=== PATIENT | male | born 1945 | race Caucasian/White ===

== ENCOUNTER 2017-05-31 08:00 | Outpatient (CLI) | payer MEDICARE ==
[2017-05-31 12:23] LABS: ALBUMIN/GLOBULIN RATIO 1.4 (1.0-2.2); ALKALINE PHOSPHATASE 56 IU/L (42-121); ALT ALANINE AMINOTRANSFERASE 22 IU/L (10-60); AST ASPARTATE AMINOTRANSFERASE 19 IU/L (10-42); BILIRUBIN,TOTAL 0.9 mg/dL (0.2-1.0); BUN - BLOOD UREA NITROGEN 30 mg/dL (6-20); CALCIUM 8.8 mg/dL (8.5-10.3); CARBON DIOXIDE - CO2 30 mmol/L (21-32); CHLORIDE 104 mmol/L (101-111); CHOL/HDL RATIO 4.2 (<5.0); CHOLESTEROL 211 mg/dL; CREATININE 1.1 mg/dL (0.6-1.2); GFR - MDRD 66 (>89); GLUCOSE 85 mg/dL (70-100); HDL CHOLESTEROL 50 mg/dL; LDL CHOLESTEROL,CALCULATED 141 mg/dL; LDL/HDL RATIO 2.8 (<3.6); SODIUM 139 mmol/L (135-145); TOTAL PROTEIN 6.8 g/dL (6.7-8.2); VLDL CHOLESTEROL 20 mg/dL
[2017-05-31 12:33] LABS: HB2 TOTAL 17.9 g/dL; HEMOGLOBIN A1C 0.71 g/dL; HEMOGLOBIN A1C % 5.8 % (4.6-6.2)
[2017-05-31 12:45] LABS: BILIRUBIN,URINE NEGATIVE (NEGATIVE); GLUCOSE, URINE (UA) NEGATIVE (NEGATIVE); KETONES,URINE (UA) NEGATIVE (NEGATIVE); LEUKOCYTE ESTERASE, URINE NEGATIVE (NEGATIVE); NITRITE,URINE NEGATIVE (NEGATIVE); OCCULT BLOOD,URINE NEGATIVE (NEGATIVE); PH,URINE 5.5 PH (5.0-7.5); PROTEIN,URINE NEGATIVE (NEGATIVE); UROBILINOGEN,URINE 0.2 (NORMAL) E.U./dL (NORMAL)
[2017-05-31 13:03] LABS: CLARITY,URINE CLOUDY (CLEAR); RBC,URINE 0-5 /HPF (0-5)
[2017-05-31 13:04] LABS: AMORPHOUS SEDIMENT,UR Marked /LPF; BACTERIA,URINE Few /HPF (None Seen); SQUAMOUS EPITHELIAL CELL,UR RARE Squamous (<= Few)
== END 2017-05-31 08:01 ==
LOC: LAB.WCP 08:00
PROVIDERS: ATTEND Family Medicine
DX: Z00.00 Encounter for general adult medical examination without abnormal findings (principal)
CPT/HCPCS: 36415; 80053; 80061; 81001; 83036; 83721

== ENCOUNTER 2017-08-15 11:57 | Day surgery (SDC) | payer MEDICARE ==
[~2017-08-15 11:57] MED LIST: LACTATED RINGERS 1,000 ML IV ONE
[2017-08-15] MEDS ORDERED: fentaNYL 250 MCG/5 ML VIAL IVP ONE (14:11)
[2017-08-15] MEDS ORDERED: MIDAZOLAM 2 MG/2 ML VIAL IVP ONE (14:11)
[2017-08-15 15:10] VITALS: BP 106/67
== END 2017-08-15 11:58 | disposition home or self-care (01) ==
LOC: SDS 11:57
PROVIDERS: ATTEND Surgery
PROC: 0DBP8ZZ Excision of Rectum, Via Natural or Artificial Opening Endoscopic (ICD-10-PCS; principal; 2017-08-15 13:00)
DX: Z12.11 Encounter for screening for malignant neoplasm of colon (principal); K62.1 Rectal polyp; K57.30 Diverticulosis of large intestine without perforation or abscess without bleeding; K64.8 Other hemorrhoids; E78.5 Hyperlipidemia, unspecified; F32.9 Major depressive disorder, single episode, unspecified
CPT/HCPCS: 45380; J7120; 88305

== ENCOUNTER 2019-10-04 12:34 | Outpatient (CLI) | payer MEDICARE | END 2019-10-04 12:35 | disposition home or self-care (01) | LOC: COV 12:34 | PROVIDERS: ATTEND Ophthalmology | DX: Z01.812 Encounter for preprocedural laboratory examination (principal); H25.811 Combined forms of age-related cataract, right eye; Z11.59 Encounter for screening for other viral diseases ==

== ENCOUNTER 2019-10-10 06:52 | Day surgery (SDC) | payer MEDICARE ==
[~2019-10-10 06:52] MED LIST changes: +CYCLOPENTOLATE 1% OPHTH DROPS 2 ML ONE; +KETOROLAC 0.45% OPHTH DROPS ONE; -LACTATED RINGERS 1,000 ML IV ONE; +PHENYLEPHRINE 2.5% OPHTH 2 ML DROPS ONE; +PROPARACAINE 0.5% OPHTH DROPS 15 ML ONE
[2019-10-10] MEDS ORDERED: MIDAZOLAM 2 MG/2 ML VIAL IVP ONE (06:53)
[2019-10-10] MEDS ORDERED: LACTATED RINGERS 1,000 ML IV ONE ×2 (06:54→09:13)
--- NOTE | 2019-10-10 08:18 | ANESTHESIA ---
Pre-Anesthesia VS, & Labs - Diagnosis right eye senile combined cataract - Procedure right eye cataract extraction with IOL Vital Signs: Temp Pulse Resp BP Pulse Ox 36.7 C 60 12 151/98 H 97 10/10/19 06:58 10/10/19 06:58 10/10/19 06:58 10/10/19 06:58 10/10/19 06:58 Height 5 ft 6 in Weight (kg) 63.5 kg - NPO >8 hours Home Medications and Allergies Home Medications: Ambulatory Orders Red Yeast Rice 2 tab PO DAILY 10/10/19 Saw [place] Fruit [Saw [place]] 2 tab PO DAILY 10/10/19 Anastrozole [Arimidex] 0.5 tab PO ONCE 08/14/17 Cholecalciferol (Vitamin D3) [Vitamin D] 2,000 unit PO DAILY 08/14/17 Glucosamine/Chondr Lemus A Sod [Glucosamine-Chondroitin Tablet] 2 each PO DAILY 08/14/17 Mecobalamin [B-12] 5,000 mcg PO DAILY 08/14/17 Testosterone 2.5 gm TD DAILY 08/14/17 Turmeric/Turmeric Root Extract [Turmeric] 1,500 mg PO DAILY 08/14/17 Red Yeast Rice 2 tab PO DAILY 10/10/19 Saw [place] Fruit [Saw [place]] 2 tab PO DAILY 10/10/19 Allergies/Adverse Reactions: Allergies Allergy/AdvReac Type Severity Reaction Status Date / Time shrimp Allergy Hives Verified 08/14/17 14:22 Sulfa (Sulfonamide Allergy Respiratory Verified 08/14/17 14:22 Antibiotics) Anes History & Medical History - Anesthetic History Anesthesia Complications: reports: No previous complications - Medical History Cardiovascular: reports: Hypertension, High cholesterol Pulmonary: reports: None Gastrointestinal: reports: None Urinary: reports: Benign prostate hypertrophy Neuro: reports: None Musculoskeletal: reports: Osteoarthritis Endocrine/Autoimmune: reports: None Blood Disorders: reports: None Skin: reports: Other (melenoma removal) Smoking Status: Never smoker Psychosocial: reports: No issues indicated - Surgical History General: Colonoscopy Exam General: Alert, Oriented x3, Cooperative, No acute distress Dental: WNL Mouth Openin Fingerbreadth Neck Mobility: Normal Mallampati classification: II Mental/Cognitive Status: Alert/Oriented X3, Normal for patient Plan Anesthesia Type: MAC Consent for Procedure(s) Verified and Reviewed: Yes Code Status: Attempt Resuscitation ASA classification: 2-Mild systemic disease Is this case an emergency?: No
[2019-10-10] MEDS ORDERED: TRIAMCIN/MOXIFLOX OPHTHALMIC 0.6 ML VIAL IO ONE ×2 (08:36→09:10)
[2019-10-10] MEDS ORDERED: EPINEPHrine 1 MG/ML AMP ONE (08:36)
[2019-10-10] MEDS ORDERED: BRIMONIDINE 0.2% OPHTH DROPS 5 ML ONE (08:36)
[2019-10-10] MEDS ORDERED: TIMOLOL 0.5% OPHTH DROPS ONE (08:36)
[2019-10-10] MEDS ORDERED: BSS/LIDOCAINE/EPINEPHRINE 1 ML SYRINGE ONE (08:37)
[2019-10-10] MEDS ORDERED: VANCOMYCIN OPHTHALMI 8MG/0.8ML 8 MG/0.8 ML SYRINGE IO ONE ×2 (08:37→09:10)
[2019-10-10] MEDS ORDERED: CHONDR SULF/HYALURONATE SYRINGE IO ONE (09:10)
[2019-10-10] MEDS ORDERED: BRIMONIDINE 0.2% OPHTH DROPS 5 ML OPTH ONE (09:10)
[2019-10-10] MEDS ORDERED: TIMOLOL 0.5% OPHTH DROPS OPTH ONE (09:10)
[2019-10-10] MEDS ORDERED: EPINEPHrine 1 MG/ML AMP IR ONE (09:10)
[2019-10-10] MEDS ORDERED: BSS/LIDOCAINE/EPINEPHRINE 1 ML SYRINGE IO ONE (09:10)
[2019-10-10] MEDS ORDERED: PROPARACAINE 0.5% OPHTH DROPS 15 ML EACHEYE ONE (09:10)
[2019-10-10 09:21] VITALS: BP 123/72
--- NOTE | 2019-10-10 10:03 | OPERATIVE REPORT ---
DATE OF SERVICE: 10/10/2019 Physician: Jase Nichols MD PREOPERATIVE DIAGNOSIS: Visually significant cataract, right eye. This was his first cataract surge ry. POSTOPERATIVE DIAGNOSIS: Visually significant cataract, right eye. This was his first cataract surg marc. PROCEDURE: Phacoemulsification with posterior chamber intraocular lens implant, right eye. SURGEON: Jase Nichols MD ANESTHESIA: Monitored anesthesia care. COMPLICATIONS: None. OPERATIVE INDICATIONS: This is a 73-year-old man with progressive vision loss in the right eye due t o 2+ nuclear sclerotic and 3-4+ cortical cataract. Best corrected visual acuity was 20/25, with glar e to hand motion vision in the right eye. Indications for surgery are overall decrease in vision, di fficulty seeing words on a computer screen, difficulty reading, difficulty seeing words, closed capti on or game scores on TV, difficulty seeing street signs, difficulty driving in low light or at night, difficulty driving at night because of headlights from other vehicles, difficulty with glare or brig ht lights in any situation, and difficulty tracking a golf ball. He was consented at length concerni ng risks and benefits of cataract surgery, after which he expressed a desire to proceed with surgery. DESCRIPTION OF PROCEDURE: The patient was taken to OR #3 and placed under monitored anesthesia care. Surgical timeout was conducted confirming correct patient, correct procedure, and correct surgical site. He was given topical anesthesia, and prepped and draped in the usual sterile fashion. The eye was entered at the 12, and 9 o'clock positions. Intracameral Shugarcaine was injected into the ante rior chamber, followed by Viscoat. A continuous-tear curvilinear capsulorrhexis was performed. Nucl eus was hydrodissected and phacoemulsified. The cortex was evacuated using automated infusion and as piration. Provisc was injected in the capsular bag, and a 17.0 diopter intraocular lens was inserted into the bag. Infusion and aspiration was used to evacuate the viscoelastic materials. The eye was inflated to physiologic pressure using balanced salt solution and found to be watertight. Approxima tely 0.25 mL of a mixture of triamcinolone and moxifloxacin was injected trans sclerally into the vit reous in inferotemporal quadrant. An additional 0.55 mL of a mixture of triamcinolone, moxifloxacin and vancomycin was injected subconjunctivally in the superior quadrant for infection and inflammation prophylaxis. Wound integrity was checked with Weck-Mahdavi sponges. The patient was taken from the Ope rating Room in good condition and given postoperative instructions. TD: 10/10/2019 09:35
--- NOTE | 2019-10-10 10:20 | ANESTHESIA POST OP EVALUATION ---
Anesthesia Post Eval - Post Anesthesia Eval Vitals: Last Vital Signs Temp 36.2 C L 10/10/19 09:20 Pulse 62 10/10/19 09:20 Resp 16 10/10/19 09:20 BP 123/72 10/10/19 09:20 Pulse Ox 96 10/10/19 09:20 CV Function Including HR & BP: positive: Stable Pain Control: positive: Satisfactory Nausea & Vomiting: positive: Negative Mental Status: positive: Baseline Respiratory Status: Airway Patent Hydration Status: Satisfactory Anesthesia Complications: positive: None
== END 2019-10-10 06:53 | disposition home or self-care (01) ==
LOC: SDS 06:52
PROVIDERS: ATTEND Ophthalmology
DX: H25.811 Combined forms of age-related cataract, right eye (principal); N40.0 Benign prostatic hyperplasia without lower urinary tract symptoms; I10 Essential (primary) hypertension
CPT/HCPCS: 66984; A9270; J3490; J7120; V2632

== ENCOUNTER 2019-11-21 09:45 | Outpatient (CLI) | payer MEDICARE ==
--- NOTE | 2019-11-21 09:48 | XRAY Report ---
PROCEDURE: Foot 3 View LT INDICATIONS: LEFT FOOT PAIN TECHNIQUE: 3 views of the foot were acquired. COMPARISON: None FINDINGS: Bones: No fractures or dislocations. No suspicious bony lesions. Soft tissues: No tibiotalar joint effusion. Achilles tendon appears normal. IMPRESSION: No trauma found, source of left foot pain is not identified. Reviewed by: Jermain Johnson MD on 11/21/2019 9:46 AM PDT Approved by: Jermain Johnson MD on 11/21/2019 9:46 AM PDT Station ID: [id number]
== END 2019-11-21 23:59 | disposition home or self-care (01) ==
LOC: DI.WCP 09:45
PROVIDERS: ATTEND Family Medicine
DX: M79.672 Pain in left foot (principal)

== ENCOUNTER 2020-01-23 10:00 | Outpatient (CLI) | payer MEDICARE ==
--- NOTE | 2020-01-23 15:45 | MRI Report ---
PROCEDURE: Ankle LT W/O INDICATIONS: DIFFICULTY WALKING, CHRONIC LT FOOT PAIN TECHNIQUE: Noncontrast sagittal T1 spin echo and T2 fast spin echo with fat saturation, axial proton density fas t spin echo and T2 fast spin echo with fat saturation, coronal T1 spin echo and T2 fast spin echo wit h fat saturation through the ankle/hindfoot. COMPARISON: None. FINDINGS: Image quality: There is mild motion artifact. Bones and joints: No bone marrow contusions or fractures. No hindfoot coalitions. No osteochondral injuries of the talar dome. No pathologic joint effusions. There is a small lobulated cyst posterio r to the tibiotalar joint compatible with a loculated joint recess or ganglion cyst. Medial structures: The posterior tibialis, flexor digitorum longus, and flexor hallucis longus tendo ns are intact with associated minimal tenosynovial fluid. The posterior tibial neurovascular bundle a ppears normal within the tarsal tunnel, without extrinsic mass effect. The deltoid and spring ligame nt components appear intact. Lateral structures: The anterior talofibular ligament is attenuated in appearance consistent with se quelae of a prior moderate sprain. The calcaneofibular ligament is also mildly attenuated system with a prior mild to moderate sprain. The posterior talofibular ligament appears intact. More superiorly, the anterior and posterior tibiofibular ligaments also appear intact, as is the intermalleolar ligam ent. The tibiofibular syndesmosis is normal in width at 2 mm or less. The peroneus longus and brevi s tendons demonstrate normal location and morphology with a small amount of tenosynovial fluid. Arabella cent bony peroneal tubercle and retrotrochlear prominence are normal in size. The sinus tarsi demons trates preserved fatty signal with minimal edema. Anterior structures: The tibialis anterior, extensor hallucis longus, and extensor digitorum longus tendons appear intact. Posterior and plantar structures: Achilles tendon is intact. Medial and lateral bands of the planta r fascia are of normal thickness. No abductor digiti quinti muscle atrophy to suggest Leiva neuropa thy. There is mild periarticular edema along the plantar aspect of the midfoot joints. IMPRESSION: 1. Mild periarticular edema along the plantar aspect of the midfoot. Findings are nonspecific and may reflect sequelae of a midfoot sprain or chronic reactive changes. 2. Sequelae of prior sprains of the anterior talofibular anchor can fibular ligaments. 3. Mild tenosynovitis along the peroneal tendons which appear intact. Reviewed by: Jd Mendez MD on 01/23/2020 3:44 PM PST Approved by: Jd Mendez MD on 01/23/2020 3:44 PM PST Station ID: [id number]
== END 2020-01-23 10:01 | disposition home or self-care (01) ==
LOC: DI 10:00
PROVIDERS: ATTEND Podiatrist
DX: M65.872 Other synovitis and tenosynovitis, left ankle and foot (principal); M79.672 Pain in left foot; R26.2 Difficulty in walking, not elsewhere classified; M21.072 Valgus deformity, not elsewhere classified, left ankle

== ENCOUNTER 2020-10-14 08:00 | Outpatient (CLI) | payer MEDICARE ==
[2020-10-14 17:54] LABS: BASOPHILS % (AUTO) 0.3 %; EOSINOPHILS # (AUTO) 0.1 10^3/uL (0.0-0.7); EOSINOPHILS % (AUTO) 1.6 %; HCT - HEMATOCRIT 53.2 % (42.0-52.0); HGB - HEMOGLOBIN 17.3 g/dL (14.0-18.0); LYMPHOCYTES # (AUTO) 0.6 10^3/uL (1.5-3.5); LYMPHOCYTES % (AUTO) 9.9 %; MEAN CORPUSCULAR HGB CONC 32.5 g/dL (32.0-36.0); MEAN CORPUSCULAR VOLUME 104.5 fL (80.0-94.0); MEAN PLATELET VOLUME 9.7 fL (7.4-11.4); MONOCYTES # (AUTO) 0.4 10^3/uL (0.0-1.0); NEUTROPHILS # (AUTO) 4.6 10^3/uL (1.5-6.6); PLT - PLATELET COUNT 216 10^3/uL (130-450); RED BLOOD COUNT 5.09 10^6/uL (4.70-6.10); RED CELL DISTRIBUTION WIDTH 12.1 % (12.0-15.0); WHITE BLOOD COUNT 5.7 x10^3/uL (4.8-10.8)
[2020-10-14 18:24] LABS: ALBUMIN/GLOBULIN RATIO 1.4 (1.0-2.2); ALKALINE PHOSPHATASE 65 IU/L (42-121); ALT ALANINE AMINOTRANSFERASE 18 IU/L (10-60); AST ASPARTATE AMINOTRANSFERASE 18 IU/L (10-42); BILIRUBIN,TOTAL 0.8 mg/dL (0.2-1.0); BUN - BLOOD UREA NITROGEN 26 mg/dL (6-20); CALCIUM 8.7 mg/dL (8.5-10.3); CARBON DIOXIDE - CO2 28 mmol/L (21-32); CHLORIDE 100 mmol/L (101-111); CHOL/HDL RATIO 3.6 (<5.0); CHOLESTEROL 178 mg/dL; CREATININE 1.2 mg/dL (0.6-1.2); GFR - MDRD 59 (>89); GLUCOSE 97 mg/dL (70-100); HDL CHOLESTEROL 50 mg/dL; LDL CHOLESTEROL,CALCULATED 114 mg/dL; LDL/HDL RATIO 2.3 (<3.6); MAGNESIUM 2.3 mg/dL (1.7-2.8); POTASSIUM 4.5 mmol/L (3.5-5.0); SODIUM 137 mmol/L (135-145); TOTAL PROTEIN 6.8 g/dL (6.7-8.2); TRIGLYCERIDES 71 mg/dL; VLDL CHOLESTEROL 14 mg/dL
[2020-10-14 18:32] LABS: THYROID STIMULATING HORMONE 2.3 uIU/mL (0.34-5.60)
[2020-10-14 20:53] LABS: ESTIMATED AVERAGE GLUCOSE 108 mg/dL (70-100); HEMOGLOBIN A1c% 5.4 % (4.27-6.07)
== END 2020-10-14 23:59 | disposition home or self-care (01) ==
LOC: LAB.WCP 08:00
PROVIDERS: ATTEND Family Medicine
DX: E78.5 Hyperlipidemia, unspecified (principal); E74.39 Other disorders of intestinal carbohydrate absorption; I49.9 Cardiac arrhythmia, unspecified
CPT/HCPCS: 36415; 80053; 80061; 83036; 83721; 83735; 84443; 85025

== ENCOUNTER 2021-02-18 09:17 | Outpatient (CLI) | payer MEDICARE ==
--- NOTE | 2021-02-18 09:34 | CARDIAC PROCEDURE NOTE ---
Stress Test Report Service Date: 02/18/21 Service Time: 09:30 Ordering Provider: Treasure Phelps DO Indication for Test: Assess for cardiac ischemia as a contributor to episodic irregular heart beat and variable blood pressures. Significant Medical History: Maikel is referred for a treadmill stress echocardiogram as part of evaluation for recent episodes of (per his report) atrial tachycardia by rhythm monitoring, with variable blood pressures. With home monitoring at rest he typically sees values in the range of 130/70's, though it can be elevated occasionally at clinic or pharmacy checks. 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 He denies any experience of chest pain, pressure or heaviness, as well as lightheadedness/dizziness. Cardiac Risk Factors: Positive for family history of CAD in his mother (at age ~70) and sister (early 60's) and possible hypertension (as above). Negative for diabetes and significant tobacco use; cholesterol status is unknown. Type of Stress Test: ETT with Echocardiography Procedure: -Exercise Treadmill Test- After signing informed consent, the patient underwent resting echo imaging and then performed treadmill exercise using a Jon protocol. The patient exercised for 8 minutes 34 seconds and achieved a peak heart rate of 164 (112 percent predicted maximum heart rate for age), and an estimated workload of 10.2 METS. The test was terminated due to fatigue/shortness of breath after achieving target heart rate. Resting heart rate: 85 Peak heart rate: 164 Normal response to exercise. Resting BP: 183/78 Peak BP: 205/70 Hypertensive at rest with physiologic BP response to exercise. Rhythm during exercise: Sinus rhythm with occasional isolated premature atrial complexes, rare isolated premature ventricular complexes and a single ventricular couplet. Symptoms: Patient denied any specific cardiovascular symptoms, such as chest discomfort, palpitations or lightheadedness. He expressed significant anxiety prior to, and even after, completing the protocol. EKG at rest showed normal sinus rhythm, normal in all aspects. EKG at peak stress showed J-point depression with upsloping ST segments, NOT meeting diagnostic criteria for ischemia. In Recovery patient's heart rate and blood pressure came down towards baseline levels, though both were still abnormally elevated (HR 103, BP 169/74) at 9 minutes of recovery. Echo imaging was performed at rest and with stress and will be reported separately. ILux MD, was present throughout this treadmill stress study and supervised it in its entirety. Summary: 1) Exercise tolerance well above average for age, as evidenced by GHASSAN of -37%. 2) Normal resting EKG. 3) Adequate level of exercise was achieved on this treadmill stress test. 4) Hypertensive at rest with physiologic BP response to exercise. 5) No ischemic changes by EKG criteria were seen at peak stress. 6) Echo image interpretation reveals normal left ventricular size and systolic function, with appropriate hyperdynamic augmentation of all segments with exercise, indicating no evidence of prior infarct or inducible ischemia. See separate report for more details. CONCLUSIONS: 1) No evidence of inducible ischemia by symptoms, EKG or echo at high workload attained, that was well above average for age and sex. 2) Baseline echo assessment was notable for mild to moderate mitral regurgitation and elevated estimated right ventricular/pulmonary artery systolic pressure of (40 + CVP of 3)=43 mmHg. Dedicated exam to fully assess mitral valve and est PASP may be informative. He mentions plan for further evaluation by [facility], to whom we will send today's report. 3) Patient reported chronic experience of "white coat hypertension" with lower values upon home monitoring. He is advised to collect additional BP data at various times of the day, and to bring his log and home BP device with him to follow up visit with Dr Phelps and/or his new cardiology provider in March.
== END 2021-02-18 09:18 | disposition home or self-care (01) ==
LOC: DI 09:17
PROVIDERS: ATTEND Family Medicine
DX: R07.89 Other chest pain (principal); I49.9 Cardiac arrhythmia, unspecified; I34.0 Nonrheumatic mitral (valve) insufficiency; Z82.49 Family history of ischemic heart disease and other diseases of the circulatory system
CPT/HCPCS: 93016; 93018; 93350

== ENCOUNTER 2021-03-09 08:00 | Outpatient (CLI) | payer MEDICARE ==
[2021-03-09 11:36] LABS: BASOPHILS % (AUTO) 0.5 %; EOSINOPHILS # (AUTO) 0.1 10^3/uL (0.0-0.7); EOSINOPHILS % (AUTO) 1.1 %; HGB - HEMOGLOBIN 14.4 g/dL (14.0-18.0); LYMPHOCYTES # (AUTO) 1.6 10^3/uL (1.5-3.5); LYMPHOCYTES % (AUTO) 36.8 %; MEAN CORPUSCULAR HEMOGLOBIN 33.9 pg (27.0-31.0); MEAN CORPUSCULAR HGB CONC 33.5 g/dL (32.0-36.0); MEAN CORPUSCULAR VOLUME 101.2 fL (80.0-94.0); MEAN PLATELET VOLUME 9.6 fL (7.4-11.4); MONOCYTES # (AUTO) 0.5 10^3/uL (0.0-1.0); MONOCYTES % (AUTO) 11.3 %; NEUTROPHILS # (AUTO) 2.2 10^3/uL (1.5-6.6); NEUTROPHILS % (AUTO) 50.1 %; PLT - PLATELET COUNT 189 10^3/uL (130-450); RED BLOOD COUNT 4.25 10^6/uL (4.70-6.10); RED CELL DISTRIBUTION WIDTH 12.4 % (12.0-15.0); WHITE BLOOD COUNT 4.4 x10^3/uL (4.8-10.8)
[2021-03-09 12:24] LABS: ALBUMIN/GLOBULIN RATIO 1.5 (1.0-2.2); BILIRUBIN,TOTAL 1.2 mg/dL (0.2-1.0); CALCIUM 9.1 mg/dL (8.5-10.3); CREATININE 1.1 mg/dL (0.6-1.2); POTASSIUM 4.4 mmol/L (3.5-5.0); TOTAL PROTEIN 6.7 g/dL (6.7-8.2)
== END 2021-03-09 23:59 | disposition home or self-care (01) ==
LOC: LAB.WCP 08:00
PROVIDERS: ATTEND Family Medicine
DX: D75.1 Secondary polycythemia (principal); R59.1 Generalized enlarged lymph nodes; E29.1 Testicular hypofunction
CPT/HCPCS: 36415; 80053; 81599; 82668; 83615; 84402; 84403; 85025

== ENCOUNTER 2021-05-11 09:02 | Outpatient (CLI) | payer MEDICARE ==
[2021-05-11 12:38] LABS: BASOPHILS % (AUTO) 0.6 %; EOSINOPHILS # (AUTO) 0.1 10^3/uL (0.0-0.7); HCT - HEMATOCRIT 41.7 % (42.0-52.0); LYMPHOCYTES # (AUTO) 1.5 10^3/uL (1.5-3.5); LYMPHOCYTES % (AUTO) 31.6 %; MEAN CORPUSCULAR HEMOGLOBIN 34.6 pg (27.0-31.0); MEAN CORPUSCULAR HGB CONC 33.6 g/dL (32.0-36.0); MEAN PLATELET VOLUME 9.8 fL (7.4-11.4); MONOCYTES # (AUTO) 0.6 10^3/uL (0.0-1.0); MONOCYTES % (AUTO) 11.7 %; NEUTROPHILS # (AUTO) 2.5 10^3/uL (1.5-6.6); NEUTROPHILS % (AUTO) 53.1 %; PLT - PLATELET COUNT 205 10^3/uL (130-450); RED BLOOD COUNT 4.05 10^6/uL (4.70-6.10); WHITE BLOOD COUNT 4.7 x10^3/uL (4.8-10.8)
[2021-05-11 12:54] LABS: ALBUMIN/GLOBULIN RATIO 1.5 (1.0-2.2); BILIRUBIN,TOTAL 0.8 mg/dL (0.2-1.0); CALCIUM 8.8 mg/dL (8.5-10.3); CREATININE 1.1 mg/dL (0.6-1.2); POTASSIUM 4.4 mmol/L (3.5-5.0); TOTAL PROTEIN 6.7 g/dL (6.7-8.2)
== END 2021-05-11 09:03 | disposition home or self-care (01) ==
LOC: LAB.N 09:02
PROVIDERS: ATTEND Family Medicine
DX: D75.1 Secondary polycythemia (principal)
CPT/HCPCS: 36415; 80053; 82668; 85025

== ENCOUNTER 2022-06-02 08:00 | Outpatient (CLI) | payer MEDICARE ==
[2022-06-02 18:07] LABS: BILIRUBIN,URINE NEGATIVE (NEGATIVE); GLUCOSE, URINE (UA) NEGATIVE (NEGATIVE); KETONES,URINE (UA) TRACE mg/dL (NEGATIVE); LEUKOCYTE ESTERASE, URINE NEGATIVE (NEGATIVE); NITRITE,URINE NEGATIVE (NEGATIVE); OCCULT BLOOD,URINE NEGATIVE (NEGATIVE); PROTEIN,URINE NEGATIVE (NEGATIVE); UROBILINOGEN,URINE 0.2 (NORMAL) E.U./dL (NORMAL)
[2022-06-02 18:08] LABS: CLARITY,URINE CLOUDY (CLEAR)
[2022-06-02 18:26] LABS: AMORPHOUS SEDIMENT,UR Marked /LPF; BACTERIA,URINE None Seen /HPF (None Seen); RBC,URINE None Seen /HPF (0-5); SQUAMOUS EPITHELIAL CELL,UR NONE SEEN (<= Few); WBC,URINE 0-3 /HPF (0-3)
== END 2022-06-02 23:59 | disposition home or self-care (01) ==
LOC: LAB.WCP 08:00
PROVIDERS: ATTEND Physician Assistant
DX: N40.1 Benign prostatic hyperplasia with lower urinary tract symptoms (principal); N13.8 Other obstructive and reflux uropathy
CPT/HCPCS: 81001; 87086

== ENCOUNTER 2022-06-06 11:01 | Outpatient (CLI) | payer MEDICARE ==
[2022-06-06 17:29] LABS: GLUCOSE, URINE (UA) NEGATIVE (NEGATIVE); KETONES,URINE (UA) 15 mg/dL (NEGATIVE); LEUKOCYTE ESTERASE, URINE NEGATIVE (NEGATIVE); NITRITE,URINE NEGATIVE (NEGATIVE); OCCULT BLOOD,URINE NEGATIVE (NEGATIVE); PH,URINE 5.5 PH (5.0-7.5); PROTEIN,URINE 30 mg/dL (NEGATIVE); UROBILINOGEN,URINE 0.2 (NORMAL) E.U./dL (NORMAL)
[2022-06-06 17:51] LABS: AMORPHOUS SEDIMENT,UR Few /LPF; BACTERIA,URINE None Seen /HPF (None Seen); BILIRUBIN,URINE NEGATIVE (NEGATIVE); CLARITY,URINE CLOUDY (CLEAR); ICTOTEST,URINE NEGATIVE; RBC,URINE None Seen /HPF (0-5); SQUAMOUS EPITHELIAL CELL,UR NONE SEEN (<= Few); WBC,URINE 0-3 /HPF (0-3)
[2022-06-06 17:52] LABS: CRYSTALS,URINE 3-5 Calcium Oxalate /LPF
[2022-06-06 18:02] LABS: THYROID STIMULATING HORMONE 3.1 uIU/mL (0.34-5.60)
[2022-06-06 18:13] LABS: FOLATE 15.75 ng/mL (5.90 - >24.8)
== END 2022-06-06 11:02 | disposition home or self-care (01) ==
LOC: LAB.N 11:01
PROVIDERS: ATTEND Physician Assistant
DX: N40.1 Benign prostatic hyperplasia with lower urinary tract symptoms (principal); N13.8 Other obstructive and reflux uropathy; D53.9 Nutritional anemia, unspecified
CPT/HCPCS: 36415; 81001; 82607; 82746; 84153; 84443; 87086

== ENCOUNTER 2022-10-18 09:15 | Outpatient (CLI) | payer MEDICARE ==
[2022-10-18 12:23] LABS: BASOPHILS % (AUTO) 0.4 %; EOSINOPHILS % (AUTO) 0.7 %; HCT - HEMATOCRIT 41.8 % (42.0-52.0); HGB - HEMOGLOBIN 13.9 g/dL (14.0-18.0); LYMPHOCYTES # (AUTO) 1.8 10^3/uL (1.5-3.5); LYMPHOCYTES % (AUTO) 32.7 %; MEAN CORPUSCULAR HEMOGLOBIN 33.2 pg (27.0-31.0); MEAN CORPUSCULAR HGB CONC 33.3 g/dL (32.0-36.0); MEAN CORPUSCULAR VOLUME 99.8 fL (80.0-94.0); MEAN PLATELET VOLUME 9.4 fL (7.4-11.4); MONOCYTES # (AUTO) 0.5 10^3/uL (0.0-1.0); MONOCYTES % (AUTO) 9.5 %; NEUTROPHILS % (AUTO) 56.5 %; PLT - PLATELET COUNT 219 10^3/uL (130-450); RED BLOOD COUNT 4.19 10^6/uL (4.70-6.10); RED CELL DISTRIBUTION WIDTH 12.7 % (12.0-15.0); WHITE BLOOD COUNT 5.4 x10^3/uL (4.8-10.8)
[2022-10-18 12:29] LABS: PT - PROTHROMBIN TIME 10.7 secs (9.9-12.6)
[2022-10-18 12:41] LABS: ALBUMIN 4.1 g/dL (3.2-5.5); ALBUMIN/GLOBULIN RATIO 1.6 (1.0-2.2); BILIRUBIN,TOTAL 0.5 mg/dL (0.2-1.0); CALCIUM 9.2 mg/dL (8.5-10.3); POTASSIUM 4.3 mmol/L (3.5-4.5); TOTAL PROTEIN 6.7 g/dL (6.4-8.9)
== END 2022-10-18 09:16 | disposition home or self-care (01) ==
LOC: LAB.N 09:15
PROVIDERS: ATTEND Physician Assistant
DX: D53.9 Nutritional anemia, unspecified (principal)
CPT/HCPCS: 36415; 80053; 83615; 85025; 85027; 85610

== ENCOUNTER 2022-12-15 10:06 | Outpatient (CLI) | payer MEDICARE ==
--- NOTE | 2022-12-15 10:41 | Sleep Patient Instructions ---
Sleep Center Visit Summary - Patient Visit Information Reason for Visit: Initial consult for evaluation of sleep disordered breathing and other sleep issues. - Patient Instructions Instructions Attached: Sleep Study Home Monitor Additional Instructions: You will be completing a sleep study, either an in-lab polysomnography (PSG) or home sleep study (HST). You will follow-up in the sleep care office after the sleep study is completed to hear the results and talk about therapy, if needed. You will be called by our office staff to schedule this appointment, but you may contact us with any questions. - Clinic Information Contact: [facility] [address] [place] [address] [email or web address] T: [phone]
--- NOTE | 2022-12-15 10:45 | SLEEP CARE CONSULTATION ---
Information from patient questionnaire entered by Lesia Parekh. I have reviewed and concur with the information entered by Lesia Parekh. This document represents the service I personally performed and the decisions made by me, Elvia Waters ARNP. History of Present Illness Service Date and Time: 12/15/2022 1006 Reason for Visit: New patient Chief Complaint: reports: Unrefreshed sleep, Snoring, Frequent awakenings at night Date of Onset: 2YRS Usual bedtime: 930-10PM Time it takes to fall asleep: ? Snores at night: Yes Observed to quit breathing while asleep: No Sleeps alone due to snoring: No Number of times waking at night: 2-4 Reasons for waking at night: reports: Bathroom. denies: Choking, Gasping for air Toss, Turn, or Twitch while sleeping: No Recalls having dreams: Yes Usually gets out of bed at: 7AM Feels refreshed in the morning: No (still tired when get up) Morning headache: No Sleepy or fatigued during the day: No Ever fallen asleep while driving: No Takes day naps: No Additional HPI information: I had the pleasure of seeing FREIDA NORTON today regarding the possibility of him having a sleep disorder. His current complaints are unrefreshed sleep, snoring and frequent night awakenings. He states he has prostate issues and is taking medication to reduce restriction of urine. He gets up frequently to urinate, 2-3 times. He is here to see if there are other factors to his frequent urination at night. His has told him that he snores. He is not sleeping in same room as but it is not due to snoring. She has never noted him stopping breathing at night. He does not wake up feeling rested, but after getting coffee is feeling awake. He does not normally take naps during the day. He denies waking up gasping for air or feeling like he is choking. - Parasomnia Symptoms Ever been unable to move upon waking from sleep: No Walks in sleep: No Talks in sleep: No Ever acted out dreams in sleep: No Ever felt weak in the knees when startled or emotional: No Bothered by creepy, crawly, restless sensations in legs: No Problems with memory or concentration: No Subjective Initial [place] Sleepiness Scale score: 5 (12/02/22) Past Medical History Past Medical History: reports: Other (NONRHEUMATIC VALVE REGURGITATION, TACHYCARDIA; BPH) Social History The patient's occupation is a RE. Patient is and lives in [place]. Have you smoked in the past 12 months: No Alcohol use: Yes Alcohol amount and frequency: GLASS OF WINE ONCE PER WEEK Caffeine use: Yes Caffeine amount and frequency: EACH MORNING 2 CUPS Family History Family history of sleep disordered breathing: Yes Family Hx Sleep Apnea: Father: Snoring Allergies and Home Medications Known drug allergies: Yes ( LISTED) Drug allergies reviewed: Yes Home medication list reviewed: Yes Allergy and home medication list: Allergies shrimp Allergy (Verified 12/14/22 08:44) Hives Sulfa (Sulfonamide Antibiotics) Allergy (Verified 12/14/22 08:44) Respiratory Home Medications Medication Instructions Recorded Confirmed Last Taken Type Cholecalciferol (Vitamin D3) 2,000 unit PO DAILY 08/14/17 12/14/22 10/09/19 History [Vitamin D] Mecobalamin [B-12] 5,000 mcg PO DAILY 08/14/17 12/14/22 10/09/19 History Turmeric/Turmeric Root Extract 1,500 mg PO DAILY 08/14/17 12/14/22 10/09/19 History [Turmeric] Red Yeast Rice 2 tab PO DAILY 10/10/19 12/14/22 10/09/19 [address] [place] 2 tab PO DAILY 10/10/19 12/14/22 10/09/19 History Alfuzosin HCl [Alfuzosin HCl ER] See Rx Instructions .ROUTE .COMPLEX 12/14/22 12/14/22 Unknown History Ascorbic Acid [Vitamin C] See Rx Instructions .ROUTE .COMPLEX 12/14/22 12/14/22 Unknown History Calcium Fructoborate [Move Free See Rx Instructions .ROUTE .COMPLEX 12/14/22 12/14/22 Unknown History Ultra Faster Comfort] Cardio Pure With Rauwolfia See Rx Instructions .ROUTE .COMPLEX 12/14/22 12/14/22 Unknown History Magnesium Oxide [Magnesium] See Rx Instructions .ROUTE .COMPLEX 12/14/22 12/14/22 Unknown History Super Bem Prostate See Rx Instructions .ROUTE .COMPLEX 12/14/22 12/14/22 Unknown History Ubidecarenone [Co Q-10] See Rx Instructions .ROUTE .COMPLEX 12/14/22 12/14/22 Unknown History Vitamin K2 See Rx Instructions .ROUTE .COMPLEX 12/14/22 12/14/22 Unknown History busPIRone [Buspar] See Rx Instructions .ROUTE .COMPLEX 12/14/22 12/14/22 Unknown History Review of Systems Weight loss over past 5 years: 5 Cardiovascular: denies: high blood pressure Respiratory: reports: shortness of breath Gastrointestinal: denies: heartburn Urinary: reports: frequency, urgency Neurological: denies: headaches Psychiatric: reports: anxiety Ear/Nose/Throat: reports: tonsillectomy Endocrine: denies: thyroid disease Immunologic: reports: allergies to food or environment (shrimp) Physical Exam Vital signs obtained and entered by: Elvia Hwang NP Blood Pressure: 143/79 Cuff size: wrist (left) Heart Rate: 55 O2 Saturation: 98 Height: 5 ft 6 in Weight: 142 lb 12.8 oz Body Mass Index: 23.0 BMI Classification: Normal Neck circumference: 13.75 (inches) Mouth and throat: narrow oropharynx Soft palate: normal Hard palate: normal Uvula: normal Uvula visualization: 50% Mallampati Class II Tongue: enlarged in size with teeth mancilla on lateral edges Tonsils: absent bilaterally Neck: normal w/o lymphadenopathy or thyromegaly Heart: irregular rhythm Lungs: clear bilaterally Impression and Plan 1. Suspected Obstructive Sleep Apnea-Hypopnea Syndrome, as suggested by a history of loud and irregular snoring, frequent awakening during the night and unrefreshed sleep. Narrow oropharynx and obesity are common predisposing factors for obstructive sleep apnea-hypopnea syndrome. I recommend proceeding to polysomnography to confirm the diagnosis and to assess severity. If the patient has significant sleep disordered breathing, a manual CPAP titration study will also be performed to find the optimal treatment pressure. I informed the patient of what the sleep studies involve and after some discussion, obtained agreement to proceed. The pathophysiology of obstructive sleep apnea-hypopnea syndrome was discussed with the patient and health risks of cardiovascular and cerebrovascular disease if not treated. 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 Patient agreed to plan. * Schedule polysomnography. * Avoid long distance driving or driving when feeling sleepy. * Avoid alcohol, sedative and muscle relaxant around bedtime. * Review instructions provided by trained office staff on how to prepare for the sleep study. * Return for follow-up after sleep study completed. Plan: PSG and followup Visit Type: In Office Time Spent with Patient (minutes): 30 Provider Statement: I spent 100% of the Face to Face Visit with the patient with greater than 50% spent counseling the patient and coordination of care.
[2022-12-15 10:50] VITALS: BP 143/79; O2SAT 98
== END 2022-12-15 10:07 | disposition home or self-care (01) ==
LOC: SC 10:06
PROVIDERS: ATTEND Nurse Practitioner Family
DX: G47.8 Other sleep disorders (principal); R06.83 Snoring; N40.1 Benign prostatic hyperplasia with lower urinary tract symptoms; R35.1 Nocturia
CPT/HCPCS: 99203; G0463; 99212

== ENCOUNTER 2022-12-26 08:55 | Outpatient (CLI) | payer MEDICARE | END 2022-12-26 08:56 | disposition home or self-care (01) | LOC: SC 08:55 | PROVIDERS: ATTEND Nurse Practitioner Family | DX: Z53.9 Procedure and treatment not carried out, unspecified reason (principal) | CPT/HCPCS: 95806 ==

== ENCOUNTER 2023-01-20 10:00 | Outpatient (CLI) | payer MEDICARE ==
--- NOTE | 2023-01-20 10:17 | Sleep Patient Instructions ---
Sleep Center Visit Summary - Patient Visit Information Reason for Visit: Sleep study follow-up - Patient Instructions Additional Instructions: You are to start Positional therapy to control your sleep apnea. You may obtain positional belts or other commercial devices online. You may also use pillows to position yourself on your side or a T shirt with balls sewn into the back to help keep you on your side to sleep. We would like to follow up with you in a month to check effectiveness of therapy. Please call office to schedule a follow up appointment in the sleep care office in 3 months. - Clinic Information Contact: [facility] [address] [place] [address] [email or web address] T: [phone]
--- NOTE | 2023-01-20 10:20 | SLEEP CARE CONSULTATION ---
Information from patient questionnaire entered by Lesia Parekh. I have reviewed and concur with the information entered by Lesia Parekh. This document represents the service I personally performed and the decisions made by , Elvia Waters ARNP. History of Present Illness Service Date and Time: 01/20/2023 1000 Initial Kennard Sleepiness Scale score: 5 (12/02/22) Current Kennard Sleepiness Scale score: 5 (01/20/23) Additional HPI information: FREIDA NORTON returns for follow up and results of the recently performed home sleep study. The sleep study showed mild obstructive sleep apnea with an average AHI of 5.5 and velia oxygen saturation of 82%. I explained the pathophysiology behind obstructive sleep apnea. We then spent quite a bit of time discussing different treatment options. For mild obstructive sleep apnea, surgery and oral appliance are alternatives to nasal CPAP therapy but in moderate or severe cases, nasal CPAP is the most effective and reliable treatment. Because apnea is primarily in supine position, then positional management therapy could be effective. Methods discussed such as positioning with pillows, using a T-shirt with tennis balls in the back or commercial products that have a pillow format on back to prevent supine sleep. I reviewed the impact of weight changes on sleep apnea and strongly recommended losing weight. Patient counseled not drink alcohol less than 4 hours before bedtime as it can increase snoring and apnea. Patient was cautioned about risks of drowsy driving until sleepiness symptoms resolve. Patient denies drowsy driving. Sleep Study - Results Type of Sleep Study: Home sleep study (COMPLETED 01/02/23) Polysomnography/Home Sleep Study results: Physician Impression: The quality of the study is fair due to partial loss of airflow signal. The length of the study is adequate (> 240 minutes). Please also see the tabulated and graphic data. 1. Obstructive Sleep Apnea-Hypopnea (ICD-10 G47.33), mild, with an AHI of 5.5/hr and velia SaO2 of 82%. During the study, the patient had 27 apneas (27 obstructive, 0 central, 0 mixed) and 6 hypopneas. The longest episode lasted 54.0 seconds. The respiratory events occurred almost exclusively during supine sleep (supine AHI was 30.5 and non-supine, 2.59). 2. Hypoxemia (ICD-10 R09.02), mild, with the lowest oxygen saturation of 82 % and 5.6 minutes with SaO2 under 90%. Baseline oxygen saturation was normal (Average oxygen saturation was 94%). Allergies and Home Medications Known drug allergies: Yes (as listed) Drug allergies reviewed: Yes Home medication list reviewed: Yes (no changes) Allergy and home medication list: Allergies shrimp Allergy (Verified 01/19/23 13:44) Hives Sulfa (Sulfonamide Antibiotics) Allergy (Verified 01/19/23 13:44) Respiratory Review of Systems Review of systems same as previous: Yes (NO CHANGE) Physical Exam Vital signs obtained and entered by: LESIA Mcfarland MA Blood Pressure: 118/66 (LEFT ARM) Cuff size: regular Heart Rate: 60 O2 Saturation: 98 Height: 5 ft 6 in Weight: 142 lb 9.6 oz Body Mass Index: 23.0 BMI Classification: Normal Impression and Plan 1. Obstructive Sleep Apnea-Hypopnea Syndrome, mild, with lowest oxygen saturation of 82%. Obviously this is the cause of the patients symptoms of unrefreshed sleep, and excessive daytime sleepiness. Positive pressure therapy could benefit cardiac disease. He states he normally sleeps on his side and is not a back sleeper. He only came in because his doctor recommended sleep study and feels he has not problems with sleep overall. He usually feels he sleeps well and is rested. Since patients apnea is primarily in supine position, patient advised to try positional therapy and agreed with plan. Follow up is scheduled for 3 months to check effectiveness and if further evaluation indicated. * Positional therapy. * Maintain healthy weight. * Avoid alcohol consumption near bedtime. * Avoid supine sleep. * Return in 3 months. I will assess response to therapy at that time. Counseling Topics: Weight control Follow up with Sleep Care in: 3 months Plan: Positional therapy Visit Type: In Office Time Spent with Patient (minutes): 20 Provider Statement: I spent 100% of the Face to Face Visit with the patient with greater than 50% spent counseling the patient and coordination of care.
[2023-01-20 10:21] VITALS: BP 118/66; O2SAT 98
== END 2023-01-20 10:01 | disposition home or self-care (01) ==
LOC: SC 10:00
PROVIDERS: ATTEND Nurse Practitioner Family
DX: G47.33 Obstructive sleep apnea (adult) (pediatric) (principal)
CPT/HCPCS: 99213; G0463; 99212